=== PATIENT | female | born 1955 | race Caucasian/White ===

== ENCOUNTER 2016-04-01 11:36 | Emergency (ER) | payer OTHER ==
[~2016-04-01 11:36] MED LIST: ALPR1 PO; CELE20TA PO; GABA600T PO; LORA1TAB PO; MELO15TA2 PO; NEUR800T PO; REME15TA PO; ROBA750T3 PO; SUBO8MIS SL; TAMO10TA2 PO; XANA1TAB6 PO
[2016-04-01 11:38] VITALS: BP 130/60; PULSE 80; RESP 16; TEMP 98; O2SAT 97
== END 2016-04-01 12:43 | disposition left against medical advice (07) ==
LOC: NED 11:36
DX: R68.89 Other general symptoms and signs (principal)
CPT/HCPCS: 99281

== ENCOUNTER 2016-04-15 19:56 | Emergency (ER) | payer OTHER ==
[~2016-04-15] VITALS: Ht 152.4 cm; Wt 62.0 kg
[2016-04-15 19:58] VITALS: BP 121/56; PULSE 82; RESP 16; TEMP 98; O2SAT 96
== END 2016-04-15 21:36 | disposition left against medical advice (07) ==
LOC: NED 19:56
DX: R11.2 Nausea with vomiting, unspecified (principal)
CPT/HCPCS: 99281

== ENCOUNTER 2016-07-04 18:31 | Emergency (ER) | payer OTHER ==
[~2016-07-04] VITALS: Ht 152.4 cm; Wt 66.4 kg
[2016-07-04 18:34] VITALS: BP 103/46; PULSE 86; RESP 18; TEMP 98.5; O2SAT 95
--- NOTE | 2016-07-04 18:40 | PD ---
HPI Chief Complaint: Musculoskeletal Complaint Time Seen by Provider: 18:40 Travel History International Travel<30 days: No Contact w/Intl Traveler<30days: No Traveled to known affect area: No History of Present Illness HPI 60-year-old female with history of breast cancer and left-sided mastectomy presents the emergency Department with a back pain since working in her garden this afternoon. Patient describes it as an achy pain without radicular symptoms. Patient also states she's had a productive cough over the last week with yellow-green sputum. She denies fever, chills, urinary symptoms , or sinus headache or sore throat. Patient has a long previous smoking history , but now only smokes occasionally. Patient takes gabapentin and Percocet chronically for her thoracic pain status post vasectomy. She is also on tamoxifen. She is allergic to tramadol, and sodium pentothal. 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) Diminished Hearing: No Genitourinary: No Musculoskeletal: No Neurologic: No Reproductive: No Respiratory: Yes Immunizations Current: Yes Seizures: Yes Menopausal: Yes Past Surgical History Cardiac Surgery: Yes Gynecologic Surgery: Yes (left mastectomy/hysterectomy) Hysterectomy: Yes Mastectomy: Yes (LEFT MAR 2009) Pacemaker: No Thoracic Surgery: Yes (LEFT BREAST REMOVED, RECONSTRUCTED BREAST CANCER) Other Surgery: Yes (BILATERAL SILICONE BREAST IMPLANTS) Social History Alcohol Use: Yes Tobacco Use: Yes Substance Use: Yes Allergies-Medications (Allergen,Severity, Reaction): Coded Allergies: Pentothal (Verified Allergy, Severe, 07/04/16) Tramadol (Verified Allergy, Mild, 07/04/16) Uncoded Allergies: SODIUM PENTHAL (Allergy, Mild, 11/04/15) Reported Meds & Prescriptions Reported Meds & Active Scripts Active Mobic (Meloxicam) 15 Mg Tab 15 Mg PO DAILY Robaxin-750 (Methocarbamol) 750 Mg Tab 750 Mg PO QID PRN FOR PAIN Reported Remeron (Mirtazapine) 15 Mg Tab 15 Mg PO HS Suboxone 8 mg/0.5 mg (Buprenorphine/Naloxone) 1 Tab Tab 1 Tab SL TID Celexa (Citalopram Hydrobromide) 20 Mg Tab 20 Mg PO HS Xanax 1 Mg Tab (Alprazolam) 1 Mg Tab 1 Mg PO TID PRN Gabapentin 600 Mg Tab 600 Mg PO BID Tamoxifen Citrate 10 mg (Tamoxifen Citrate) 10 Mg Tab 1 Tab PO DAILY Lorazepam 1 Mg Tab 1 Mg PO HS Neurontin (Gabapentin) 800 Mg Tab 800 Mg PO TID Xanax 1 mg (Alprazolam) Alprazolam 1 mg Tab 1 Tab PO TID PRN Review of Systems Except as stated in HPI: all other systems reviewed are Neg General / Constitutional: No: Fever Eyes: No: Visual changes HENT: No: Headaches, Sore Throat, Rhinitis, Rhinorrhea, Congestion, Nosebleed, Neck Stiffness, Neck Pain, Ear Discharge, Earache Cardiovascular: No: Chest Pain or Discomfort Respiratory: Positive: Cough, Wheezing, No: Shortness of Breath, Sneezing Gastrointestinal: No: Nausea, Vomiting, Diarrhea, Abdominal Pain Genitourinary: No: Dysuria Musculoskeletal: Positive: Myalgias, Arthralgias, Pain (see history of present illness.) Skin: No Rash Neurologic: No: Weakness Psychiatric: No: Depression Endocrine: No: Polydipsia Hematologic/Lymphatic: No: Easy Bruising Physical Exam Narrative GENERAL: Patient appears in no acute distress. SKIN: Warm and dry. Normal color. Normal turgor. No rash. HEAD: Atraumatic. Normocephalic. EYES: Pupils equal and round. No scleral icterus. No injection or drainage. ENT: No nasal bleeding or discharge. Mucous membranes pink and moist. Pharynx is clear. Airway is patent. No sinus tenderness. TMs are unremarkable bilaterally. NECK: Trachea midline. Supple and nontender. CARDIOVASCULAR: Regular rate and rhythm. RESPIRATORY: No accessory muscle use. Mild diffuse wheezes and rales bilaterally To auscultation. Breath sounds equal bilaterally. MUSCULOSKELETAL: Extremities without clubbing, cyanosis, or edema. No obvious deformities. Negative straight leg raise pain bilaterally in the lower extremities. NEUROLOGICAL: Awake and alert. No obvious cranial nerve deficits. Motor grossly within normal limits. Five out of 5 muscle strength in the arms and legs. Normal speech. PSYCHIATRIC: Appropriate mood and affect; insight and judgment normal. Data Data Last Documented VS Vital Signs Date Time Temp Pulse Resp B/P Pulse Ox O2 Delivery O2 Flow Rate FiO2 07/04/16 18:34 98.5 86 18 103/46 95 Orders Chest, Pa & Lat (07/04/16 18:47) Ketorolac Inj (Toradol Inj) (07/04/16 19:00) Dexamethasone Inj (Decadron Inj) (07/04/16 19:00) Azithromycin (Zithromax) (07/04/16 19:15) MDM Medical Decision Making Medical Screen Exam Complete: Yes Emergency Medical Condition: Yes Differential Diagnosis Lumbar back strain. Muscle spasm. Cough. COPD with exacerbation. Bronchitis. Narrative Course Patient is medically stable at time of exam. Patient is given Toradol 60 mg IM as well as 10 mg Decadron IM. Patient is given azithromycin 500 mg by mouth. Chest x-ray is ordered PA and lateral. Chest x-ray shows COPD without significant acute findings. Patient will be treated for bronchitis, with azithromycin 500 mg daily for the next 5 days. Patient is also given prednisone 20 mg twice a day for the next 5 days for both her lower back discomfort as well as her bronchitis. Patient is encouraged to use her pro-air inhaler 2 puffs every 6 hours for the next several days until better. Patient should follow-up with her primary care physician in the next week to ensure improvement. Patient can always return to emergency Department with worsening symptoms as needed. Diagnosis Primary Impression: Strain, lumbosacral Qualified Code: S39.012A - Strain, lumbosacral, initial encounter Additional Impression: Acute wheezy bronchitis Patient Instructions: Acute Bronchitis (ED), COPD (Chronic Obstructive Pulmonary Disease) (ED), General Instructions, Low Back Strain (ED), Lower Back Exercises (ED) Additional Instructions: Patient is given Toradol 60 mg IM as well as 10 mg Decadron IM. Patient is given azithromycin 500 mg by mouth. Chest x-ray is ordered PA and lateral. Chest x-ray shows COPD without significant acute findings. Patient will be treated for bronchitis, with azithromycin 500 mg daily for the next 5 days. Patient is also given prednisone 20 mg twice a day for the next 5 days for both her lower back discomfort as well as her bronchitis. Patient is encouraged to use her pro-air inhaler 2 puffs every 6 hours for the next several days until better. Patient should follow-up with her primary care physician in the next week to ensure improvement. Patient can always return to emergency Department with worsening symptoms as needed. Med/Other Pt SpecificInfo: Prescription(s) given Scripts Prednisone 20 Mg Tab20 Mg PO BID #10 TAB Prov:Anay Victoria MD 07/04/16 Azithromycin 500 Mg [id number] Mg PO DAILY #5 TAB Prov:Anay Victoria MD 07/04/16 Albuterol 18 GM Inh (Ventolin Hfa 18 GM Inh)90 Mcg/Act Aer2 Puff INH Q4-6H PRN ( SHORTNESS OF BREATH) #1 INHALER Prov:Anay Victoria MD 07/04/16 Disposition: 01 DISCHARGE HOME Condition: Stable Ruiz Gonzalez July 04, 2016 18:40
[2016-07-04] MEDS ORDERED: KETOROLAC TROMETHAMINE 60 MG/2 ML (IM) VIAL IM ONE (19:00)
[2016-07-04] MEDS ORDERED: DEXAMETHASONE SOD PHOS 20 MG/5 ML VIAL IM ONE (19:00)
[2016-07-04] MEDS ORDERED: AZITHROMYCIN 250 MG TAB PO ONE (19:15)
[2016-07-04] MEDS ORDERED: AZIT500T2 PO (19:49)
[2016-07-04] MEDS ORDERED: PRED20 PO (19:49)
[2016-07-04] MEDS ORDERED: VENTAER INH (19:49)
--- NOTE | 2016-07-04 19:49 | RADHPO ---
EXAM DATE/TIME: 07/04/2016 19:37 [facility] COMPARISON: CHEST SINGLE AP, May 07, 2013, 18:00. INDICATIONS : Cough and congestion. MEDICAL HISTORY : Carcinoma, breast. SURGICAL HISTORY : Cholecystectomy. Mastectomy, left. Hysterectomy. ENCOUNTER: Initial ACUITY: 1 week PAIN SCORE: 10/10 LOCATION: Bilateral chest FINDINGS: PA and lateral views of the chest demonstrate the lungs to be symmetrically aerated without evidence of mass, infiltrate or effusion. The cardiomediastinal contours are unremarkable. Osseous structure s are intact. CONCLUSION: No evidence of acute cardiopulmonary disease. Alonso Tilley MD on July 04, 2016 at 19:47 Board Certified Radiologist. This report was verified electronically.
== END 2016-07-04 20:27 | disposition home or self-care (01) ==
LOC: PHEFT 18:31
DX: S39.012A Strain of muscle, fascia and tendon of lower back, initial encounter (principal); J40 Bronchitis, not specified as acute or chronic; J44.9 Chronic obstructive pulmonary disease, unspecified; J45.909 Unspecified asthma, uncomplicated; Z72.0 Tobacco use; X50.1XXA Overexertion from prolonged static or awkward postures, initial encounter; Y93.H2 Activity, gardening and landscaping; Y92.017 Garden or yard in single-family (private) house as the place of occurrence of the external cause
CPT/HCPCS: 71020; 96372; 99283; J1100; J1885